=== PATIENT | female | born 1990 | race Two or more races ===

== ENCOUNTER 2020-04-01 12:58 | Outpatient (REF) | payer OTHER, SELFPAY | END 2020-04-01 12:59 | disposition home or self-care (01) | LOC: HO.LAB 12:58 | PROVIDERS: Visit Provider Internal Medicine | DX: Z20.828 Contact with and (suspected) exposure to other viral communicable diseases (principal) | CPT/HCPCS: C9803; U0003 ==

== ENCOUNTER 2020-04-14 16:13 | Outpatient (REF) | payer OTHER, SELFPAY | END 2020-04-14 16:14 | disposition home or self-care (01) | LOC: HO.LAB 16:13 | PROVIDERS: Visit Provider Internal Medicine | DX: Z20.828 Contact with and (suspected) exposure to other viral communicable diseases (principal) | CPT/HCPCS: 36415; C9803; U0003 ==